=== PATIENT | female | born 1940 | race Caucasian/White ===

== ENCOUNTER → 2018-06-13 09:34 | Outpatient (CLI) | payer MEDICARE, SELFPAY | PROVIDERS: PCP Physician Assistant; Visit Provider Physician Assistant | DX: Z78.0 Asymptomatic menopausal state (principal) | CPT/HCPCS: 77080 ==

== ENCOUNTER → 2018-06-26 14:12 | Outpatient (CLI) | payer MEDICARE, SELFPAY ==
--- NOTE | 2018-06-26 | DI.RAD.S_ITS ---
PROCEDURE: XR LUMBAR SPINE 2-3V INDICATIONS: LOWER BACK PAIN TECHNIQUE: 3 views of the lumbar spine were acquired. COMPARISON: None. FINDINGS: Bones: 5 [id number] vertebrae are present. There is normal bony alignment. No vertebral body compression fractures. No suspicious bony lesions. There is degenerative disc disease, severe at L4-L5, [id number] at L3-L4 and L5-S1. There is moderate facet arthropathy at L4-L5 and L5-S1. Soft tissues: Overlying bowel gas pattern is normal. No suspicious soft tissue calcifications. IMPRESSION: Moderate to severe degenerative disc disease and moderate degenerative facet disease. Dictated by: Lang Pelaez M.D. on 06/26/2018 at 17:26 Approved by: Lang Pelaez M.D. on 06/26/2018 at 17:28
--- NOTE | 2018-06-26 | DI.RAD.S_ITS ---
PROCEDURE: XR HIP W PEL IF DONE RT 2V INDICATIONS: LOWER BACK PAIN TECHNIQUE: 2 views of the hip were acquired. COMPARISON: [facility], CR, HIPBILAT 3TO4V W PEL IF PERFD, 11/01/2016, 10:21. FINDINGS: Bones: No fractures or dislocations. No suspicious bony lesions. The visualized pelvic ring appears intact. There is mild hip and sacroiliac joint degeneration. Soft tissues: No suspicious soft tissue calcifications or masses. IMPRESSION: Mild degenerative joint disease. Dictated by: Lang Pelaez M.D. on 06/26/2018 at 17:21 Approved by: Lang Pelaez M.D. on 06/26/2018 at 17:23
== END ==
PROVIDERS: PCP Physician Assistant; Visit Provider Student in an Organized Health Care Education/Training Program
DX: M54.5 Low back pain (principal); M16.11 Unilateral primary osteoarthritis, right hip; M47.818 Spondylosis without myelopathy or radiculopathy, sacral and sacrococcygeal region; M47.817 Spondylosis without myelopathy or radiculopathy, lumbosacral region; M47.816 Spondylosis without myelopathy or radiculopathy, lumbar region; M51.36 Other intervertebral disc degeneration, lumbar region; M51.37 Other intervertebral disc degeneration, lumbosacral region
CPT/HCPCS: 72100; 73502

== ENCOUNTER → 2018-07-25 09:58 | Outpatient (CLI) | payer MEDICARE, SELFPAY | PROVIDERS: PCP Physician Assistant; Visit Provider Physician Assistant | DX: Z12.31 Encounter for screening mammogram for malignant neoplasm of breast (principal) ==

== ENCOUNTER → 2018-07-25 10:21 | Outpatient (CLI) | payer MEDICARE, SELFPAY ==
--- NOTE | 2018-07-25 | DI.MG.S_ITS ---
BILATERAL DIGITAL SCREENING MAMMOGRAM 3D/2D WITH CAD: 07/25/2018 CLINICAL: Routine screening. Comparison is made to exams dated: 07/24/2017 mammogram, 07/13/2016 mammogram, 07/12/2015 mammogram, and 07/09/2013 mammogram - [facility]. There are scattered fibroglandular elements in both breasts. Current study was also evaluated with a Computer Aided Detection (CAD) system. No significant masses, calcifications, or other findings are seen in either breast. There has been no significant interval change. IMPRESSION: NEGATIVE There is no mammographic evidence of malignancy. A 1 year screening mammogram is recommended. This exam was interpreted at Station ID: [id number]. NOTE: For mammograms, a report in lay terms will be sent to the patient. Approximately 15% of breast malignancies will not be visualized mammographically. In the management of a palpable breast mass, a negative mammogram must not discourage biopsy of a clinically suspicious lesion. Electronically Signed By: Glenna griffith/cathi:07/25/2018 11:41:52 letter sent: Normal Exam ACR BI-RADS Category 1: Negative [id number]
== END ==
PROVIDERS: PCP Physician Assistant; Visit Provider Physician Assistant
DX: Z12.31 Encounter for screening mammogram for malignant neoplasm of breast (principal)
CPT/HCPCS: 77063; 77067

== ENCOUNTER → 2019-02-11 12:26 | Outpatient (CLI) | payer MEDICARE, SELFPAY ==
--- NOTE | 2019-02-11 | DI.MG.S_ITS ---
UNILATERAL RIGHT DIGITAL DIAGNOSTIC MAMMOGRAM 3D/2D: 02/11/2019 CLINICAL: Right breast pain and lump. Comparison is made to exams dated: 07/25/2018 mammogram, 07/24/2017 mammogram, and 07/13/2016 mammogram - [facility]. There are scattered fibroglandular elements in right breast. No significant masses, calcifications, or other findings are seen in the breast. Specifically, no finding to correspond to the patient's area of tenderness anteriorly or axillary palpable abnormality. IMPRESSION: INCOMPLETE: NEEDS ADDITIONAL IMAGING EVALUATION There is no abnormality seen in the right axilla to correspond with the palpable abnormality in the right axilla, however, ultrasound is recommended. This was performed immediately following this exam. There is no abnormality seen in the right breast to correspond with the palpable abnormality and pain in the anterior depth in the superior lateral quadrant, however, ultrasound is recommended. This was performed immediately following this exam. This exam was interpreted at Station ID: [id number]. NOTE: For mammograms, a report in lay terms will be sent to the patient. Approximately 15% of breast malignancies will not be visualized mammographically. In the management of a palpable breast mass, a negative mammogram must not discourage biopsy of a clinically suspicious lesion. Electronically Signed By: Glenna griffith/:02/11/2019 14:35:16 ACR BI-RADS Category 0: Incomplete [id number]
--- NOTE | 2019-02-11 | DI.US.S_ITS ---
ULTRASOUND OF RIGHT BREAST AND AXILLA: 02/11/2019 CLINICAL: Palpable right breast lump. Palpable right axilla lump. Comparison is made to exams dated: 02/11/2019 mammogram, 07/25/2018 mammogram, 07/24/2017 mammogram, 07/13/2016 mammogram, 07/12/2015 mammogram, and 07/09/2013 mammogram - [facility]. Color flow and real-time ultrasound of the right breast axilla were performed. Espinosa scale images of the real-time examination were reviewed. There is mild, debris-containing duct ectasia amidst dense fibrous tissue in the right breast at the area of tenderness at the 9 o'clock anterior depth. This correlates with stable mammography findings back to 2013. Color flow imaging demonstrates that there is no vascularity present. No abnormalities were seen sonographically in the right axilla. Specifically, no finding to correspond to the patient's palpable abnormality. IMPRESSION: PROBABLY BENIGN The duct ectasia in the right breast is probably benign. A follow-up ultrasound in 6 months is recommended to demonstrate sonographic stability. No abnormalities seen in the right axilla on mammogram or ultrasound. Clinical follow up recommended. Findings and recommendations were conveyed to the patient at time of exam. This exam was interpreted at Station ID: [id number]. Electronically Signed By: Glenna griffith/:02/11/2019 14:42:01 letter sent: Followup Recommended Ultrasound BI-RADS: 3 Probably benign
== END ==
PROVIDERS: PCP Student in an Organized Health Care Education/Training Program; Visit Provider Student in an Organized Health Care Education/Training Program
DX: N63.10 Unspecified lump in the right breast, unspecified quadrant (principal)
CPT/HCPCS: 76642; 77065; G0279

== ENCOUNTER → 2020-04-11 09:15 | Outpatient (CLI) | payer MEDICARE, SELFPAY ==
[2020-04-12 12:25] LABS: COVID19 Sendout Not Detected (Not Detect)
== END ==
PROVIDERS: PCP Student in an Organized Health Care Education/Training Program; Visit Provider Physician Assistant
DX: Z11.59 Encounter for screening for other viral diseases (principal)
CPT/HCPCS: 87635

== ENCOUNTER 2020-04-14 08:21 | Day surgery (SDC) | payer MEDICARE, SELFPAY ==
--- NOTE | 2020-04-13 17:31 | PM.PREOP ---
Pre-operative Note COVID-19 COVID-19 status: Negative Interval Note History & Physical reviewed/Exam performed by Physician: Yes Changes to H&P: No
[2020-04-14] MEDS: PROPARACAINE 0.5% OPHTH SOL 2 DROPS EYE-OP (09:28)
[2020-04-14] MEDS: CATARACT EYE COMPOUND (10 DROPS/SYRINGE) 3 DROPS EYE-OP (09:32)
[2020-04-14 09:33] VITALS: BMI 22.2
[2020-04-14 09:39] VITALS: BP 150/75; PULSE 48; RESP 16; TEMP 36.6; O2SAT 100
--- NOTE | 2020-04-14 10:07 | PM.OP.1 ---
Operative Date/Time/Diagnoses Date of procedure: 04/14/20 Time of procedure: 09:45 Procedure & Clinicians Procedure: Preoperative diagnoses: 1. Right significant nuclear sclerotic and cortical cataract. 2. Tremor treated with propranolol as needed. 3. Arthritis 4. Hearing loss needing hearing aids. Postoperative diagnoses: 1. Cataract removed by phacoemulsification with placement of posterior chamber intraocular lens. Procedure: Phacoemulsification with posterior chamber intraocular lens implant Surgeon: Meghna Wang MD Complications: None Specimen: None Implant: ZCBOO+23.0 Blood loss: None Anesthesia: Retrobulbar with monitored standby Description of procedure: Patient presents with a complaint of decreased vision due to cataract which is affecting activities of daily living. The patient wants surgery to improve vision. The patient was taken to the operating room and given IV sedation. A retrobulbar block consisting of 6 cc of 2% xylocaine without epinephrine mixed half and half with 0.5% Marcaine with 1 cc of hyaluronidase added is placed between the medial and lateral 1/3 of the inferior orbital rim. The eye is manually massaged for 30 sec, prepped using Betadine solution, and draped in the usual sterile fashion. Temporal approach was made, a 1 mm side-port incision was made 90? from the proposed clear corneal incision position. Phenylephrine 1.5% mixed with 1% xylocaine 0.2 cc was placed into the anterior chamber. Viscoat followed by Maury was then placed. A 2.6 mm clear incision with a 2.6 mm blade was placed. A 360 degree capsulorrhexis style capsulotomy was then performed with a cystitome needle on a Healon. Hydrodelineation and hydrodissection were performed. The phacoemulsification unit is introduced, and sculpting notice used to groove the central lens. It is then removed in chopping mode. Epi nucleus is removed with epinuclear mode and irrigation aspiration was used to remove the peripheral cortex. The posterior capsule is polished. The intraocular lens is selected, inspected, power confirmed, and placed in the posterior chamber. The wound was stromally hydrated and tested for leaks, there was none and it was left sutureless. Vigamox 0.1 cc was placed into the anterior chamber. Kenalog 0.2 cc was placed in the superior subconjunctival space. A drop of antibiotic and was placed and the eye was patched and shielded. The patient was stable and returned to the recovery room in excellent condition. Dictated by: Meghna Wang MD Copy to: [facility] Same procedure as scheduled: Yes
[2020-04-14] MEDS: LIDOCAINE 2% 4 ML, BUPIVACAINE 0.5% (PF) 4 ML, HYALURONIDASE 150 UNIT INJ (10:42)
[2020-04-14] MEDS: CHONDROIDTIN/SOD HYALURONATE 1.05 ML SYRINGE INTRAOCULA (10:44)
[2020-04-14] MEDS: ERYTHROMYCIN OPHTH 1 GM OINT 1 APPLIC EYE-RIGHT (10:44)
[2020-04-14] MEDS: PHENYLEPHRINE/LIDOCAINE VIAL (OR) 0.2 ML EYE-OP (10:45)
[2020-04-14] MEDS: HYALURONATE SODIUM 10 MG/ML SYRINGE INJ (10:45)
[2020-04-14] MEDS: MOXIFLOXACIN INJ 5 MG/ML VIAL EYE-OP (10:45)
[2020-04-14] MEDS: TRIAMCINOLONE 50 MG/5 ML VIAL INJ (10:46)
[2020-04-14] MEDS: BALANCED SALT IRRIG SOLN NO.2 500 ML, EPINEPHrine 1 MG IRR (10:46)
[2020-04-14 10:58] VITALS: BP 129/72; PULSE 49; RESP 16; TEMP 35.8; O2SAT 99
[2020-04-14 11:33] VITALS: BP 120/72; PULSE 51; RESP 16; TEMP 36.2; O2SAT 98
--- NOTE | 2020-04-14 11:38 | SUR.PHASEII ---
Pt up and ambulating earlier gait steady, all dc instructions given and pt verbalizes understanding, drinking tea in chair dressed and ready to go. Ride coming from [place]
== END 2020-04-14 11:50 | disposition home or self-care (01) ==
PROVIDERS: PCP Student in an Organized Health Care Education/Training Program; Referring Provider Ophthalmology; Visit Provider Ophthalmology
PROC: (CPT 66984; principal; 2020-04-14 09:45)
DX: H25.811 Combined forms of age-related cataract, right eye (principal); R25.1 Tremor, unspecified
CPT/HCPCS: 66984; J0171; J2704; J3010; J3301; J3470

== ENCOUNTER → 2020-04-25 09:02 | Outpatient (CLI) | payer MEDICARE, SELFPAY ==
[2020-04-26 20:11] LABS: COVID19 Sendout Not Detected (Not Detect)
== END ==
PROVIDERS: PCP Student in an Organized Health Care Education/Training Program; Visit Provider Physician Assistant
DX: Z11.59 Encounter for screening for other viral diseases (principal)
CPT/HCPCS: 87635

== ENCOUNTER 2020-04-28 07:25 | Day surgery (SDC) | payer MEDICARE, SELFPAY ==
--- NOTE | 2020-04-26 13:09 | PM.PREOP ---
Pre-operative Note COVID-19 COVID-19 status: Negative Interval Note History & Physical reviewed/Exam performed by Physician: Yes Changes to H&P: No
--- NOTE | 2020-04-26 13:09 | PM.OP.1 ---
Operative Date/Time/Diagnoses Date of procedure: 04/28/20 Time of procedure: 08:45 Procedure & Clinicians Procedure: Preoperative diagnoses: 1. Left nuclear sclerotic and cortical cataract. 2. Severe anxiety 3. Tremor Postoperative diagnoses: 1. Cataract removed by phacoemulsification with placement of posterior chamber intraocular lens. Procedure: Phacoemulsification with posterior chamber intraocular lens implant Surgeon: Meghna Wang MD Complications: None Specimen: None Implant: ZCBOO+22.5 Blood loss: None Anesthesia: Retrobulbar with monitored standby Description of procedure: Patient presents with a complaint of decreased vision due to cataract which is affecting activities of daily living both distance and near. She has had successful cataract surgery in her right eye recently. She does have significant anxiety which is not medicated except for which she takes Xanax for intermittently for sleep. The patient wants surgery to improve vision. The patient was taken to the operating room and given IV sedation. A retrobulbar block consisting of 6 cc of 2% xylocaine without epinephrine mixed half and half with 0.5% Marcaine with 1 cc of hyaluronidase added is placed between the medial and lateral 1/3 of the inferior orbital rim. The eye is manually massaged for 30 sec, prepped using Betadine solution, and draped in the usual sterile fashion. Temporal approach was made, a 1 mm side-port incision was made 90? from the proposed clear corneal incision position. Phenylephrine 1.5% mixed with 1% xylocaine 0.2 cc was placed into the anterior chamber. Viscoat followed by Healon was then placed. A 2.6 mm clear incision with a 2.6 mm blade was placed. A 360 degree capsulorrhexis style capsulotomy was then performed with a cystitome needle on a Healon. Hydrodelineation and hydrodissection were performed. The phacoemulsification unit is introduced, and sculpting notice used to groove the central lens. It is then removed in chopping mode. Epi nucleus is removed with epinuclear mode and irrigation aspiration was used to remove the peripheral cortex. The posterior capsule is polished. The intraocular lens is selected, inspected, power confirmed, and placed in the posterior chamber. The wound was stromally hydrated and tested for leaks, there was none and it was left sutureless. Vigamox 0.1 cc was placed into the anterior chamber. Kenalog 0.2 cc was placed in the superior subconjunctival space. A drop of antibiotic and was placed and the eye was patched and shielded. The patient was stable and returned to the recovery room in excellent condition. Dictated by: Meghna Wang MD Copy to: [facility] Same procedure as scheduled: Yes
[2020-04-28] MEDS: PROPARACAINE 0.5% OPHTH SOL 2 DROPS EYE-OP (07:44)
[2020-04-28] MEDS: CATARACT EYE COMPOUND (10 DROPS/SYRINGE) 3 DROPS EYE-OP (07:45)
[2020-04-28 07:48] VITALS: BP 165/82; PULSE 57; RESP 16; TEMP 36.4; O2SAT 100; BMI 22.2
[2020-04-28] MEDS: LIDOCAINE 2% 4 ML, BUPIVACAINE 0.5% (PF) 4 ML, HYALURONIDASE 150 UNIT INJ (09:20)
[2020-04-28] MEDS: BALANCED SALT IRRIG SOLN NO.2 500 ML, EPINEPHrine 1 MG IRR (09:20)
[2020-04-28] MEDS: MOXIFLOXACIN INJ 5 MG/ML VIAL EYE-OP (09:22)
[2020-04-28] MEDS: PHENYLEPHRINE/LIDOCAINE VIAL (OR) 0.2 ML EYE-OP (09:22)
[2020-04-28] MEDS: ERYTHROMYCIN OPHTH 1 GM OINT 1 APPLIC EYE-LEFT (09:23)
[2020-04-28] MEDS: TRIAMCINOLONE 50 MG/5 ML VIAL INJ (09:23)
[2020-04-28] MEDS: CHONDROIDTIN/SOD HYALURONATE 1.05 ML SYRINGE INTRAOCULA (09:23)
[2020-04-28] MEDS: HYALURONATE SODIUM 10 MG/ML SYRINGE INJ (09:23)
[2020-04-28 09:49] VITALS: BP 145/75; PULSE 46; RESP 16; TEMP 36.1; O2SAT 98
== END 2020-04-28 10:15 | disposition home or self-care (01) ==
LOC: OR 07:28
PROVIDERS: PCP Student in an Organized Health Care Education/Training Program; Referring Provider Student in an Organized Health Care Education/Training Program; Visit Provider Ophthalmology
PROC: (CPT 66984; principal; 2020-04-28 08:45)
DX: H25.812 Combined forms of age-related cataract, left eye (principal); F41.9 Anxiety disorder, unspecified; R25.1 Tremor, unspecified
CPT/HCPCS: 66984; J0171; J2704; J3010; J3301; J3470

== ENCOUNTER → 2020-06-17 10:58 | Outpatient (CLI) | payer MEDICARE, SELFPAY ==
--- NOTE | 2020-06-17 | DI.RAD.S_ITS ---
PROCEDURE: XR CERVICAL SPINE 4V OR 5V INDICATIONS: PAIN AND CRACKING WITH MOVEMENT TECHNIQUE: For 5 views of the cervical spine acquired. COMPARISON: None. FINDINGS: Bones: No fractures or dislocations to the C7-T1 level. There is loss of the expected cervical lordosis. Focal kyphotic deformity is present centered at C5. There is grade 1 C3 on C4 and C4 on C5 anterolisthesis. There is grade 1 C6 on C7 retrolisthesis. No compression deformities. Severe degenerative changes are present at C5-6 and C6-7 including intervertebral disc space narrowing, endplate sclerosis, and osteophytosis. High-grade foraminal narrowing is present on the right at C5-6 and C6-7. No neural foraminal stenosis of the superior left neural foramina. C5-T1 neural foramina are poorly characterized. Soft tissues: No prevertebral soft tissue swelling. IMPRESSION: 1. Severe degenerative change in focal kyphotic deformity of the cervical spine centered at C5. 2. High-grade foraminal narrowing on the right at C5-6 and C6-7. 3. Incomplete characterization of the left neural foramina. No neural foraminal narrowing of the upper left cervical spine. Dictated by: Katiuska Yang M.D. on 06/17/2020 at 11:11 Approved by: Katiuska Yang M.D. on 06/17/2020 at 11:24
--- NOTE | 2020-06-17 | DI.RAD.S_ITS ---
PROCEDURE: XR SHOULDER RT MIN 2V INDICATIONS: PAIN AND CRACKING SOUND TECHNIQUE: 3 views of the shoulder were acquired. COMPARISON: None. FINDINGS: Bones: No fractures or dislocations. Mild to moderate acromioclavicular joint and glenohumeral joint osteoarthritic changes are seen. No suspicious bony lesions. Visualized ribs appear intact. Soft tissues: No suspicious soft tissue calcifications. IMPRESSION: No shoulder fracture or dislocation. 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 Dictated by: Bharat Gay M.D. on 06/17/2020 at 12:03 Approved by: Bharat Gay M.D. on 06/17/2020 at 12:12
== END ==
PROVIDERS: PCP Student in an Organized Health Care Education/Training Program; Referring Provider Student in an Organized Health Care Education/Training Program; Visit Provider Student in an Organized Health Care Education/Training Program
DX: M25.511 Pain in right shoulder (principal); M19.011 Primary osteoarthritis, right shoulder; M47.812 Spondylosis without myelopathy or radiculopathy, cervical region; M48.02 Spinal stenosis, cervical region
CPT/HCPCS: 72050; 73030

== ENCOUNTER → 2020-07-10 11:27 | Outpatient (CLI) | payer MEDICARE, SELFPAY ==
--- NOTE | 2020-07-10 11:29 | DI.MG.S_ITS ---
BILATERAL DIGITAL SCREENING MAMMOGRAM 3D/2D WITH CAD: 07/10/2020 CLINICAL: Routine screening. Family history of breast cancer. Comparison is made to exams dated: 07/25/2018 mammogram, 07/24/2017 mammogram, and 07/13/2016 mammogram - [facility]. There are scattered fibroglandular elements in both breasts. Current study was also evaluated with a Computer Aided Detection (CAD) system. No significant masses, calcifications, or other findings are seen in either breast. There has been no significant interval change. IMPRESSION: NEGATIVE There is no mammographic evidence of malignancy. A 1 year screening mammogram is recommended. This exam was interpreted at Station ID: [id number]. NOTE: For mammograms, a report in lay terms will be sent to the patient. Approximately 15% of breast malignancies will not be visualized mammographically. In the management of a palpable breast mass, a negative mammogram must not discourage biopsy of a clinically suspicious lesion. Electronically Signed By: Jagjit hutchison/cathi:07/12/2020 07:40:33 letter sent: Normal Exam ACR BI-RADS Category 1: Negative [id number]
== END ==
PROVIDERS: PCP Student in an Organized Health Care Education/Training Program; Referring Provider Student in an Organized Health Care Education/Training Program; Visit Provider Student in an Organized Health Care Education/Training Program
DX: Z12.31 Encounter for screening mammogram for malignant neoplasm of breast (principal); Z80.3 Family history of malignant neoplasm of breast
CPT/HCPCS: 77063; 77067

== ENCOUNTER 2021-05-16 09:04 | Emergency (ER) | payer MEDICARE, SELFPAY ==
[2021-05-16] VITALS (11 sets, daily range): BP systolic 143–175; BP diastolic 71–83; PULSE 60–80; RESP 18; TEMP 36.7; O2SAT 96–99
--- NOTE | 2021-05-16 09:14 | DI.CT.S_ITS ---
PROCEDURE: CT PEL WO CON INDICATIONS: Fall/injury/attention right hip TECHNIQUE: Noncontrast 3 mm axial sections acquired through the bony pelvis, with coronal and sagittal reformatting. COMPARISON: [facility], CR, XR HIP W PEL IF DONE RT 2V, 06/26/2018, 14:20. FINDINGS: Image quality: Excellent. Bones: There is a comminuted subcapital fracture of the right femoral neck with impaction and superior displacement of the distal fracture fragment. Nondisplaced fracture of the femoral head. There is a minimally displaced fracture of the anterior column of the right acetabulum. Degenerative disc and facet disease in lumbar spine, most pronounced at L4-L5. Soft tissues: There is a low-density nodule in the inferior pole of the right kidney. IMPRESSION: 1. Right femoral neck and head fractures. 2. Nondisplaced fracture of the anterior column of the right acetabulum. Dictated by: Lang Pelaez M.D. on 05/16/2021 at 9:56 Approved by: Lang Pelaez M.D. on 05/16/2021 at 10:08
--- NOTE | 2021-05-16 09:15 | ED.FALL ---
HPI - Fall General Chief Complaint: Fall Stated Complaint: Fall, hip pain Time Seen by Provider: 05/16/21 09:07 History of Present Illness HPI Narrative: Patient brought in by ambulance. patient was walking her dog and they got tangled up with another dog. Patient fell on her right hip. Denies denies any other injuries. Is not on any blood thinners. Unable to move her right hip without pain. Pants shoes and socks removed. There is no shortening or or rotation of the right foot or leg. No numbness or tingling to the foot. No previous hip surgery or injury. Patient is on prednisone which she is currently tapering by her family doctor. Patient explains that she is taking naltrexone prescribed by her doctor while she is tapering off of steroids. She states she is not on any current opiates. Patient received fentanyl by EMS without any results. She does agree with Xanax at this time to help relax the muscles. In the right hip area. She understands any further opiates would not be beneficial. Related Data Home Medications Medication Instructions Recorded Confirmed prednisone 2.5 mg tablet 5 mg PO BEDTIME 05/16/21 05/16/21 prednisone 2.5 mg tablet 7.5 mg PO QAM 05/16/21 05/16/21 Allergies Allergy/AdvReac Type Severity Reaction Status Date / Time lorazepam AdvReac Severe Anxiety Verified 05/16/21 09:28 Review of Systems Review of Systems Narrative: GENERAL: Denies chills, fatigue, malaise, fever, sweats. HEENT: Denies sinus pain, ear pain, sore throat RESPIRATORY: Denies dyspnea, cough CARDIOVASCULAR: Denies chest pain, palpitations GASTROINTESTINAL: Denies nausea, vomiting, abdominal pain : Denies dysuria, frequency, hematuria MUSCULOSKELETAL: Positive muscle or bony pain SKIN: Denies rash, skin lesions NEUROLOGIC: Denies weakness, numbness ROS Unobtainable: All systems reviewed & are unremarkable except as noted in HPI and below Patient History Social History household members: spouse Smoking Status: Former smoker alcohol intake: current Smoking Status: Former smoker alcohol intake frequency: 0-2 drinks per day Substance Use Type: does not use Exam Narrative Exam Narrative: GENERAL: in no distress, not toxic not dyspneic HEAD: Normocephalic. GASTROINTESTINAL: Abdomen soft, non-tender EXTREMITIES: No gross deformities. Pants shoes and socks removed. There is no shortening or rotation of the right leg or foot. Strong pedal pulse with light touch intact to foot and toes. Nontender knee and ankle. Skin intact. Mild tenderness to the right hip. No overlying bruise. There is very limited flexion extension and movement of the right hip due to pain. NEURO: AOx4. SKIN: Warm and dry PSYCH: Not anxious, is cooperative Initial Vital Signs Initial Vital Signs: Vital Signs Temperature 98.1 F 05/16/21 09:05 Pulse Rate 75 05/16/21 09:05 Respiratory Rate 18 05/16/21 09:05 Blood Pressure 175/83 H 05/16/21 09:05 Pulse Oximetry 99 05/16/21 09:05 Course Course Course Narrative: Will need transfer as we do not have beds here Orders Ordered: Discontinued Medications Alprazolam (Alprazolam 0.5 Mg Tablet) 0.5 mg PO NOW ONE Stop: 05/16/21 09:15 Last Admin: 05/16/21 09:24 Dose: 0.5 mg Documented by: FAVIAN Hydromorphone HCl (Hydromorphone 1 Mg Inj) 1 mg IV NOW ONE Stop: 05/16/21 10:23 Last Admin: 05/16/21 10:29 Dose: 1 mg Documented by: FAVIAN Hydromorphone HCl (Hydromorphone 1 Mg Inj) 1 mg IV NOW ONE Stop: 05/16/21 12:26 Last Admin: 05/16/21 12:29 Dose: 1 mg Documented by: LORENZO Reevaluation(s) Reevaluation #1: Patient understands no beds here and needs transfer. Awake alert orient x4. Feels more relaxed but still has pain in the right hip. Time: 10:23 Consultations Consultation #1: Spoke with [facility], Dr. Lainez, will need to transfer as we do not have any beds here Time: 10:10 Consultation #2: Spoke with [facility], Dr. Ram, will accept patient. Admit to hospitalist Time: 11:23 Consultation #3: Spoke with [facility], hospitalist, dr pearl, will accept pt Time: 11:40 Vital Signs Vital signs: Vital Signs - 8 hr 05/16/21 09:05 05/16/21 09:07 05/16/21 09:30 Temperature 98.1 F Pulse Rate 75 80 66 Respiratory Rate 18 Blood Pressure 175/83 H 171/76 H Pulse Oximetry 99 96 98 05/16/21 10:00 05/16/21 10:30 05/16/21 10:31 Temperature Pulse Rate 61 60 65 Respiratory Rate Blood Pressure 143/72 H Pulse Oximetry 96 96 97 MDM - Fall Differential Diagnosis Differential diagnosis: Likely other (Pelvis fracture hip fracture/hip dislocation) Lab Data Result diagrams: 05/16/21 12:10 05/16/21 12:10 Labs: Lab Results 05/16/21 05/16/21 05/16/21 Range/Units 12:10 12:10 12:10 WBC 17.1 H (4.5-11.0) X10^3/uL RBC 4.32 (4.0-5.2) X10^6/uL Hgb 13.2 (12.0-16.0) g/dL Hct 39.6 (36-46) % MCV 91.6 (80-100) fL MCH 30.6 (26-34) PG MCHC 33.4 (30-36) % RDW 14.9 H (11.6-14.8) % Plt Count 299 (150-400) X10^3/uL Neut % (Auto) 83.7 H (50-75) % Lymph % (Auto) 9.8 L (25-40) % [place] % (Auto) 5.3 (3-14) % Eos % (Auto) 0.7 L (2-4) % Baso % (Auto) 0.5 (0-2) % Neut # (Auto) 48614 H (1442-3131) /uL Lymph # (Auto) 1700 (6940-7655) /uL [place] # (Auto) 900 (0-900) /uL Eos # (Auto) 100 (0-450) /uL Baso # (Auto) 100 (0-100) /uL PT 10.5 (10.1-12.7) SECONDS INR 0.9 (0.9-1.3) APTT 28 (26.4-36.2) SECONDS Sodium 135 L (137-145) mmol/L Potassium 3.6 (3.4-5.1) mmol/L Chloride 97 L (98-107) mmol/L Carbon Dioxide 31 (22-32) mmol/L BUN 15 (7-17) mg/dL Creatinine 0.63 (0.52-1.04) mg/dL Estimated GFR > 60.0 (>60) mL/min BUN/Creatinine Ratio 23.8 H (6-22) Glucose 88 (80-110) mg/dL Calcium 9.4 (8.4-10.2) mg/dL Total Bilirubin 0.6 (0.2-1.3) mg/dL AST 31 (14-36) IU/L ALT 27 (<35) IU/L Alkaline Phosphatase 65 (38-126) U/L Total Protein 6.8 (6.3-8.2) g/dL Albumin 4.2 (3.5-5.0) g/dL Globulin 2.6 (1.7-4.1) g/dL Albumin/Globulin Ratio 1.6 (1.0-2.8) SARS-CoV-2 (PCR) (Negative) Blood Type Antibody Screen 05/16/21 05/16/21 Range/Units 12:10 12:23 WBC (4.5-11.0) X10^3/uL RBC (4.0-5.2) X10^6/uL Hgb (12.0-16.0) g/dL Hct (36-46) % MCV (80-100) fL MCH (26-34) PG MCHC (30-36) % RDW (11.6-14.8) % Plt Count (150-400) X10^3/uL Neut % (Auto) (50-75) % Lymph % (Auto) (25-40) % [place] % (Auto) (3-14) % Eos % (Auto) (2-4) % Baso % (Auto) (0-2) % Neut # (Auto) (8206-4548) /uL Lymph # (Auto) (4262-1281) /uL [place] # (Auto) (0-900) /uL Eos # (Auto) (0-450) /uL Baso # (Auto) (0-100) /uL PT (10.1-12.7) SECONDS INR (0.9-1.3) APTT (26.4-36.2) SECONDS Sodium (137-145) mmol/L Potassium (3.4-5.1) mmol/L Chloride (98-107) mmol/L Carbon Dioxide (22-32) mmol/L BUN (7-17) mg/dL Creatinine (0.52-1.04) mg/dL Estimated GFR (>60) mL/min BUN/Creatinine Ratio (6-22) Glucose (80-110) mg/dL Calcium (8.4-10.2) mg/dL Total Bilirubin (0.2-1.3) mg/dL AST (14-36) IU/L ALT (<35) IU/L Alkaline Phosphatase (38-126) U/L Total Protein (6.3-8.2) g/dL Albumin (3.5-5.0) g/dL Globulin (1.7-4.1) g/dL Albumin/Globulin Ratio (1.0-2.8) SARS-CoV-2 (PCR) Negative (Negative) Blood Type O Positive Antibody Screen Negative Urine Dip Bedside Urine Glucose Negative Bedside Urine Bilirubin - Negative Bedside Urine Ketone - Negative Urine Specific [place] 1.015 Bedside Urine Occult Blood - Negative Bedside Urine pH 7.0 Bedside Urine Protein - Negative Bedside Urine Urobilinogen - Negative Bedside Urine Nitrite - Negative Bedside Urine Leukocytes - Negative Esterase Imaging Data Extremity x-ray #1: Radiologist's Impression: [address] [address] [address] Scan Report Signed Patient: Nely Bragg MR#: [id number] : 1940 Acct:[id number] Age/Sex: 81 / F Date of Service: 05/16/21 Loc: ED Accession Number: [id number] ?? Procedure: CT pelvis wo con Ordering Provider: Rafael Hsu MD PROCEDURE:? CT PEL WO CON ? INDICATIONS:? Fall/injury/attention right hip ? TECHNIQUE:? Noncontrast 3 mm axial sections acquired through the bony pelvis, with coronal and sagittal reformatting.? ? COMPARISON:? [facility], CR, XR HIP W PEL IF DONE RT 2V, 06/26/2018, 14:20. ? FINDINGS:? Image quality:? Excellent.? ? Bones:? There is a comminuted subcapital fracture of the right femoral neck with impaction and superior displacement of the distal fracture fragment.? Nondisplaced fracture of the femoral head.? There is a minimally displaced fracture of the anterior column of the right acetabulum.? Degenerative disc and facet disease in lumbar spine, most pronounced at L4-L5. ? Soft tissues:? There is a low-density nodule in the inferior pole of the right kidney. ? ? IMPRESSION:? ? 1. Right femoral neck and head fractures. 2. Nondisplaced fracture of the anterior column of the right acetabulum.? Dictated by: Lang Pelaez M.D. on 05/16/2021 at 9:56 ? ? Approved by: Lang Pelaez M.D. on 05/16/2021 at 10:08 ? Extremity x-ray #2: Radiologist's Impression: [place] [address] XRay Report Signed Patient: Nely Bragg MR#: [id number] : 1940 Acct:[id number] Age/Sex: 81 / F Date of Service: 05/16/21 Loc: ED Accession Number: [id number] ?? Procedure: XR hip w pel if done RT 2V Ordering Provider: Rafael Hsu MD PROCEDURE:? XR HIP W PEL IF DONE RT 2V ? INDICATIONS:? Pain/injury ? TECHNIQUE:? AP pelvis with lateral view(s) of the right hip(s).? ? COMPARISON:? [facility], CT, CT PEL WO CON, 05/16/2021, 9:39.? [facility], CR, XR HIP W PEL IF DONE RT 2V, 06/26/2018, 14:20. ? FINDINGS:? ? Bones:? There is a comminuted, moderately displaced fracture through the right mid femoral neck. ? No hip dislocation can be seen.? No fractures of the pelvis can be seen, by plain film. Age-appropriate lower lumbar spine degenerative changes are noted. ? Soft tissues:? The visualized bowel gas pattern is normal.? No suspicious soft tissue calcifications.? ? ? IMPRESSION:? Comminuted, moderately displaced right femoral neck fracture. ? Dictated by: Lloyd Haro M.D. on 05/16/2021 at 10:16 ? ? Approved by: Lloyd Haro M.D. on 05/16/2021 at 10:18 ? MDM Narrative Medical decision making narrative: Will need transfer as we do not have beds here. Patient agrees and understands. Discharge Plan Departure Patient Disposition: [facility] Clinical Impression: Closed fracture of right hip requiring operative repair Prescriptions: No Action prednisone 2.5 mg Tablet 5 mg PO BEDTIME 0RF prednisone 2.5 mg Tablet 7.5 mg PO QAM 0RF Referrals: Joellen Carranza PA-C [Primary Care Provider] -
[2021-05-16] MEDS: ALPRAZolam 0.5 MG TABLET PO (09:24)
--- NOTE | 2021-05-16 10:21 | DI.RAD.S_ITS ---
PROCEDURE: XR HIP W PEL IF DONE RT 2V INDICATIONS: Pain/injury TECHNIQUE: AP pelvis with lateral view(s) of the right hip(s). COMPARISON: [facility], CT, CT PEL WO CON, 05/16/2021, 9:39. [facility], CR, XR HIP W PEL IF DONE RT 2V, 06/26/2018, 14:20. FINDINGS: Bones: There is a comminuted, moderately displaced fracture through the right mid femoral neck. No hip dislocation can be seen. No fractures of the pelvis can be seen, by plain film. Age-appropriate lower lumbar spine degenerative changes are noted. Soft tissues: The visualized bowel gas pattern is normal. No suspicious soft tissue calcifications. IMPRESSION: Comminuted, moderately displaced right femoral neck fracture. Dictated by: Lloyd Haro M.D. on 05/16/2021 at 10:16 Approved by: Lloyd Haro M.D. on 05/16/2021 at 10:18
[2021-05-16] MEDS: HYDROMORPHONE 1 MG INJ IV ×2 (10:29→12:29)
[2021-05-16 12:29] LABS: Add Manual Diff / Slide Review NO; Basophils Absolute Auto 100 /uL (0-100); Basophils Percent Auto 0.5 % (0-2); Eosinophils Absolute Auto 100 /uL (0-450); Eosinophils Percent Auto 0.7 % (2-4); Hematocrit 39.6 % (36-46); Hemoglobin 13.2 g/dL (12.0-16.0); Lymphocytes Absolute Auto 1700 /uL (1100-4500); Lymphocytes Percent Auto 9.8 % (25-40); Mean Corpuscular HGB Conc 33.4 % (30-36); Mean Corpuscular Hemoglobin 30.6 PG (26-34); Mean Corpuscular Volume 91.6 fL (80-100); Monocytes Absolute Auto 900 /uL (0-900); Monocytes Percent Auto 5.3 % (3-14); Neutrophils Absolute Auto 14300 /uL (1500-7000); Neutrophils Percent Auto 83.7 % (50-75); Platelet Count 299 X10^3/uL (150-400); Red Blood Cell Count 4.32 X10^6/uL (4.0-5.2); Red Cell Distribution Width 14.9 % (11.6-14.8); White Blood Cell Count 17.1 X10^3/uL (4.5-11.0)
[2021-05-16 12:41] LABS: INR 0.9 (0.9-1.3); Prothrombin Time 10.5 SECONDS (10.1-12.7)
[2021-05-16 12:43] LABS: PTT Partial Thromboplastin Tim 28 SECONDS (26.4-36.2)
[2021-05-16 12:48] LABS: Alanine Aminotransferase 27 IU/L (<35); Albumin 4.2 g/dL (3.5-5.0); Albumin Globulin Ratio 1.6 (1.0-2.8); Alkaline Phosphatase 65 U/L (38-126); Aspartate Aminotransferase 31 IU/L (14-36); BUN Creatinine Ratio 23.8 (6-22); Bilirubin Total 0.6 mg/dL (0.2-1.3); Blood Urea Nitrogen 15 mg/dL (7-17); Calcium 9.4 mg/dL (8.4-10.2); Carbon Dioxide 31 mmol/L (22-32); Chloride 97 mmol/L (98-107); Estimated Glomerular Filt Rate > 60.0 mL/min (>60); Globulin 2.6 g/dL (1.7-4.1); Glucose 88 mg/dL (80-110); HEMOLYSIS < 15 (0-50); Potassium 3.6 mmol/L (3.4-5.1); Sodium 135 mmol/L (137-145); Total Protein 6.8 g/dL (6.3-8.2)
[2021-05-16 13:06] LABS: COVID19 -Nasal RAPID Negative (Negative)
== END 2021-05-16 13:05 | disposition short-term general hospital (02) ==
PROVIDERS: Emergency Provider Emergency Medicine; PCP Student in an Organized Health Care Education/Training Program
DX: S72.001A Fracture of unspecified part of neck of right femur, initial encounter for closed fracture (principal); W01.0XXA Fall on same level from slipping, tripping and stumbling without subsequent striking against object, initial encounter; Z20.822 Contact with and (suspected) exposure to COVID-19
CPT/HCPCS: 36415; 72192; 73502; 80053; 81003; 85025; 85610; 85730; 86850; 86900; 86901; 87635; 96374; 96376; 99284; 99285; C9803; J1170

== ENCOUNTER → 2021-07-11 10:19 | Outpatient (CLI) | payer MEDICARE, SELFPAY ==
--- NOTE | 2021-07-11 | DI.MG.S_ITS ---
BILATERAL DIGITAL SCREENING MAMMOGRAM 3D/2D WITH CAD: 07/11/2021 CLINICAL: Routine screening. Family history of breast cancer. Comparison is made to exams dated: 07/10/2020 mammogram, 02/11/2019 mammogram, 07/25/2018 mammogram, and 07/24/2017 mammogram - [facility]. There are scattered fibroglandular elements in both breasts. Current study was also evaluated with a Computer Aided Detection (CAD) system. No significant masses, calcifications, or other findings are seen in either breast. There has been no significant interval change. IMPRESSION: NEGATIVE There is no mammographic evidence of malignancy. A 1 year screening mammogram is recommended. This exam was interpreted at Station ID: [id number]. NOTE: For mammograms, a report in lay terms will be sent to the patient. Approximately 15% of breast malignancies will not be visualized mammographically. In the management of a palpable breast mass, a negative mammogram must not discourage biopsy of a clinically suspicious lesion. Electronically Signed By: Jagjit hutchison/cathi:07/11/2021 13:05:33 letter sent: Normal Exam ACR BI-RADS Category 1: Negative 3341F
== END ==
PROVIDERS: PCP Internal Medicine; Referring Provider Internal Medicine; Visit Provider Internal Medicine
DX: Z12.31 Encounter for screening mammogram for malignant neoplasm of breast (principal); Z80.3 Family history of malignant neoplasm of breast
CPT/HCPCS: 77063; 77067

== ENCOUNTER → 2022-01-18 08:50 | Outpatient (CLI) | payer MEDICARE, SELFPAY ==
[2022-01-18 09:40] LABS: Add Manual Diff / Slide Review NO; Basophils Absolute Auto 100 /uL (0-100); Basophils Percent Auto 0.9 % (0-2); Eosinophils Absolute Auto 0 /uL (0-450); Eosinophils Percent Auto 0.5 % (2-4); Hematocrit 41.2 % (36-46); Hemoglobin 13.8 g/dL (12.0-16.0); Lymphocytes Absolute Auto 1900 /uL (1100-4500); Lymphocytes Percent Auto 22.3 % (25-40); Mean Corpuscular HGB Conc 33.5 % (30-36); Mean Corpuscular Hemoglobin 30.9 PG (26-34); Mean Corpuscular Volume 92.2 fL (80-100); Monocytes Absolute Auto 700 /uL (0-900); Neutrophils Absolute Auto 5900 /uL (1500-7000); Neutrophils Percent Auto 68.3 % (50-75); Platelet Count 336 X10^3/uL (150-400); Red Blood Cell Count 4.47 X10^6/uL (4.0-5.2); Red Cell Distribution Width 13.7 % (11.6-14.8); White Blood Cell Count 8.7 X10^3/uL (4.5-11.0)
[2022-01-18 10:05] LABS: Erythrocyte Sedimentation Rate 4 MM/HR (0-20)
[2022-01-18 10:16] LABS: Alanine Aminotransferase 18 IU/L (<35); Albumin 4.3 g/dL (3.5-5.0); Albumin Globulin Ratio 1.7 (1.0-2.8); Alkaline Phosphatase 58 U/L (38-126); Aspartate Aminotransferase 26 IU/L (14-36); BUN Creatinine Ratio 22.7 (6-22); Bilirubin Total 0.5 mg/dL (0.2-1.3); Blood Urea Nitrogen 17 mg/dL (7-17); Calcium 9.8 mg/dL (8.4-10.2); Carbon Dioxide 29 mmol/L (22-32); Chloride 101 mmol/L (98-107); Estimated Glomerular Filt Rate > 60 mL/min (>60); Globulin 2.5 g/dL (1.7-4.1); Glucose 72 mg/dL (80-110); HEMOLYSIS < 15 (0-50); Potassium 4.4 mmol/L (3.4-5.1); Sodium 138 mmol/L (137-145); Total Protein 6.8 g/dL (6.3-8.2)
[2022-01-18 10:25] LABS: Iron 94 ug/dL (37-170)
[2022-01-18 10:54] LABS: Thyroid Stimulating Hormone 0.876 uIU/mL (0.47-4.68)
[2022-01-19 16:18] LABS: SS A Ro Sjogrens Antibody < 0.2 AI (0.0-0.9); SS B La Sjogrens Antibody < 0.2 AI (0.0-0.9)
[2022-01-20 18:36] LABS: ANA Screen, IFA Positive (.)
== END ==
PROVIDERS: PCP Internal Medicine; Referring Provider Ophthalmology; Visit Provider Ophthalmology
DX: G50.9 Disorder of trigeminal nerve, unspecified (principal); H53.122 Transient visual loss, left eye; H16.222 Keratoconjunctivitis sicca, not specified as Sjogren's, left eye
CPT/HCPCS: 36415; 80053; 83540; 84443; 85025; 85651; 86038; 86235

== ENCOUNTER → 2022-05-02 08:15 | Outpatient (CLI) | payer MEDICARE, SELFPAY ==
--- NOTE | 2022-05-02 | DI.RAD.S_ITS ---
PROCEDURE: XR HIP W PEL IF DONE RT 2V INDICATIONS: RIGHT HIP PAIN TECHNIQUE: AP pelvis with lateral view(s) of the right hip(s). COMPARISON: [facility], CR, XR PELVIS 1 OR 2 VIEWS, 06/29/2021, 13:28. [facility], CR, XR HIP W PEL IF DONE RT 2V, 05/16/2021, 10:37. FINDINGS: Bones: Right hip arthroplasty. Hardware is intact without hardware fracture or periprosthetic lucency to suggest loosening. Arthritic changes are present within the lower lumbar spine as well as left hip. Soft tissues: The visualized bowel gas pattern is normal. No suspicious soft tissue calcifications. IMPRESSION: Stable appearance of right hip arthroplasty. Dictated by: Mindy Henry M.D. on 05/02/2022 at 13:45 Approved by: Mindy Henry M.D. on 05/02/2022 at 13:46
== END ==
PROVIDERS: PCP Internal Medicine; Referring Provider Internal Medicine; Visit Provider Internal Medicine
DX: M25.551 Pain in right hip (principal); Z96.641 Presence of right artificial hip joint
CPT/HCPCS: 73502

== ENCOUNTER → 2022-05-03 10:23 | Outpatient (CLI) | payer MEDICARE, SELFPAY | PROVIDERS: PCP Internal Medicine; Referring Provider Internal Medicine; Visit Provider Internal Medicine | DX: Z13.820 Encounter for screening for osteoporosis (principal); M85.852 Other specified disorders of bone density and structure, left thigh; Z78.0 Asymptomatic menopausal state; Z90.710 Acquired absence of both cervix and uterus; Z87.311 Personal history of (healed) other pathological fracture | CPT/HCPCS: 77080 ==

== ENCOUNTER → 2022-07-18 15:14 | Outpatient (CLI) | payer MEDICARE, SELFPAY ==
--- NOTE | 2022-07-18 | DI.MG.S_ITS ---
BILATERAL DIGITAL SCREENING MAMMOGRAM 3D/2D WITH CAD: 07/18/2022 CLINICAL: Routine screening. Family history of breast cancer. Comparison is made to exams dated: 07/11/2021 mammogram, 07/10/2020 mammogram, 07/25/2018 mammogram, and 07/24/2017 mammogram - [facility]. There are scattered areas of fibroglandular density in both breasts (category b / 25%-50% glandular tissue). Current study was also evaluated with a Computer Aided Detection (CAD) system. No significant masses, calcifications, or other findings are seen in either breast. There has been no significant interval change. IMPRESSION: NEGATIVE There is no mammographic evidence of malignancy. A 1 year screening mammogram is recommended. Based on the Tyrer Cuzick model (a risk assessment model) the patient's lifetime risk is 0.4% and her 10 year risk is 0.0%. According to the ACR, ACS, and NCCN guidelines, an annual breast MRI exam along with mammogram is recommended if the patient's lifetime risk is 20% or greater. This exam was interpreted at Station ID: [id number]. NOTE: For mammograms, a report in lay terms will be sent to the patient. Approximately 15% of breast malignancies will not be visualized mammographically. In the management of a palpable breast mass, a negative mammogram must not discourage biopsy of a clinically suspicious lesion. Electronically Signed By: Saji escalona/cathi:07/19/2022 10:07:59 letter sent: Normal Exam ACR BI-RADS Category 1: Negative 3341F
== END ==
PROVIDERS: PCP Internal Medicine; Referring Provider Internal Medicine; Visit Provider Internal Medicine
DX: Z12.31 Encounter for screening mammogram for malignant neoplasm of breast (principal); Z80.3 Family history of malignant neoplasm of breast
CPT/HCPCS: 77063; 77067

== ENCOUNTER → 2023-07-19 11:12 | Outpatient (CLI) | payer MEDICARE, SELFPAY ==
--- NOTE | 2023-07-19 | DI.MG.S_ITS ---
BILATERAL DIGITAL SCREENING MAMMOGRAM 3D/2D WITH CAD: 07/19/2023 CLINICAL: Routine screening. Family history of breast cancer. Comparison is made to exams dated: 07/18/2022 mammogram, 07/11/2021 mammogram, and 07/10/2020 mammogram - [facility]. Both breasts are heterogeneously dense, which may obscure small masses (category c / 51-75% glandular tissue). Current study was also evaluated with a Computer Aided Detection (CAD) system. No significant masses, calcifications, or other findings are seen in either breast. There has been no significant interval change. IMPRESSION: NEGATIVE There is no mammographic evidence of malignancy. A 1 year screening mammogram is recommended. Based on the Tyrer Cuzick model (a risk assessment model) the patient's lifetime risk is 0.4% and her 10 year risk is 0.0%. According to the ACR, ACS, and NCCN guidelines, an annual breast MRI exam along with mammogram is recommended if the patient's lifetime risk is 20% or greater. This exam was interpreted at Station ID: [id number]. NOTE: For mammograms, a report in lay terms will be sent to the patient. Approximately 15% of breast malignancies will not be visualized mammographically. In the management of a palpable breast mass, a negative mammogram must not discourage biopsy of a clinically suspicious lesion. Electronically Signed By: Charbel nguyen/cathi:07/19/2023 16:31:53 letter sent: Normal Exam ACR BI-RADS Category 1: Negative 3341F
== END ==
PROVIDERS: PCP Internal Medicine; Referring Provider Family Medicine; Visit Provider Family Medicine
DX: Z12.31 Encounter for screening mammogram for malignant neoplasm of breast (principal); Z80.3 Family history of malignant neoplasm of breast; R92.333 Mammographic heterogeneous density, bilateral breasts
CPT/HCPCS: 77063; 77067

== ENCOUNTER → 2024-07-21 09:59 | Outpatient (CLI) | payer MEDICARE, SELFPAY ==
--- NOTE | 2024-07-21 10:00 | DI.RAD.S_ITS ---
PROCEDURE: XR DEXA AXIAL SKELETON INDICATIONS: ROUTINE SCREENING / POST MENOPAUSAL COMPARISON: [facility], CR, XR DEXA AXIAL SKELETON, 05/03/2022, 11:46. FINDINGS: Lumbar Spine: Bone mineral density 0.959 g/cm2, T score -0.8, normal, change from previous 2.7%, significant. Left Femoral Neck: Bone mineral density 0.644 g/cm2, T score -1.8, osteopenia, change from previous 6.4%, significant. Left Hip: Bone mineral density 0.799 g/cm2, T score -1.2, osteopenia, change from previous 0.4%. Fracture Risk Calculation (when applicable): 10-year fracture risk of a major osteoporotic fracture 48 percent and of a hip fracture 34 percent. (T score greater or equal to -1.0 to: NORMAL) (T score from -1.1 to -2.4: OSTEOPENIA) (T score less than or equal to -2.5: OSTEOPOROSIS) IMPRESSION: Osteopenia elevates the patient's 10 year fracture risk as described. Significant interval increase in femoral neck and lumbar spine bone mineral density compared to the prior study. Increase in 10 year fracture risk, probably due to glucocorticoid administration, previously not a risk factor. Follow-up guidelines as follows: Osteoporosis: Consider a repeat DEXA and Vertebral Fracture Assessment (VFA) exam in 2 years or sooner if medically necessary, to reassess this patient's status. Osteopenia: Consider a repeat DEXA in 2-3 years to reassess this patient's status, or if there is a new clinical indication. Normal: Consider a repeat DEXA in 5 years or sooner, or if there is a new clinical indication. All treatment decisions require clinical judgment and consideration of individual patient factors, including patient preferences, comorbidities, previous drug use, risk factors not captured in the FRAX model (e.g., frailty, falls, vitamin D deficiency, increased bone turnover, interval significant decline in bone density ) and possible under- or over-estimation of fracture risk by FRAX. In addition, the NOF Guide recommends that FDA-approved medical therapies be considered in postmenopausal women and men age >= 50 years with a: * Hip or vertebral (clinical or morphometric) fracture * T-score of <=-2.5 at the spine or hip * Ten-year fracture probability by FRAX of >= 3% for hip fracture or >=20% for major osteoporotic fracture. Dictated by: Glenna Fan M.D. on 07/21/2024 at 20:26 Approved by: Glenna Fan M.D. on 07/21/2024 at 20:29
== END ==
PROVIDERS: PCP Family Medicine; Referring Provider Family Medicine; Visit Provider Family Medicine
DX: M85.852 Other specified disorders of bone density and structure, left thigh (principal); Z78.0 Asymptomatic menopausal state
CPT/HCPCS: 77080

== ENCOUNTER → 2024-07-30 13:05 | Outpatient (CLI) | payer MEDICARE, SELFPAY ==
--- NOTE | 2024-07-30 | DI.MG.S_ITS ---
BILATERAL DIGITAL SCREENING MAMMOGRAM 3D/2D WITH CAD: 07/30/2024 CLINICAL: Routine screening. Family history of breast cancer. Comparison is made to exams dated: 07/19/2023 mammogram, 07/18/2022 mammogram, and 07/11/2021 mammogram - [facility]. The breasts are heterogeneously dense, which may obscure small masses (category c / 51-75% glandular tissue). Current study was also evaluated with a Computer Aided Detection (CAD) system. There are benign post operative findings in the right breast. No significant masses, calcifications, or other findings are seen in either breast. There has been no significant interval change. IMPRESSION: BENIGN There is no mammographic evidence of malignancy. A 1 year screening mammogram is recommended. Based on the Tyrer Cuzick model (a risk assessment model) the patient's lifetime risk is 0.2% and her 10 year risk is 0.0%. According to the ACR, ACS, and NCCN guidelines, an annual breast MRI exam along with mammogram is recommended if the patient's lifetime risk is 20% or greater. This exam was interpreted at Station ID: [id number]. NOTE: For mammograms, a report in lay terms will be sent to the patient. Approximately 15% of breast malignancies will not be visualized mammographically. In the management of a palpable breast mass, a negative mammogram must not discourage biopsy of a clinically suspicious lesion. Electronically Signed By: Jenna Stevens M.D., Ph.D. janeth/cathi:07/31/2024 14:03:34 letter sent: Normal Exam ACR BI-RADS Category 2: Benign
== END ==
PROVIDERS: PCP Family Medicine; Referring Provider Family Medicine; Visit Provider Family Medicine
DX: Z12.31 Encounter for screening mammogram for malignant neoplasm of breast (principal); Z80.3 Family history of malignant neoplasm of breast; R92.333 Mammographic heterogeneous density, bilateral breasts
CPT/HCPCS: 77063; 77067